=== PATIENT | male | born 1980 | race Caucasian/White ===

== ENCOUNTER 2024-01-09 09:36 | Inpatient (IN) | payer BC, MEDICAID ==
[~2024-01-09] VITALS: Ht 175.3 cm; Wt 81.0 kg
[2024-01-09] MEDS: ONDANSETRON HCL 4 MG/2 ML VIAL IV ONE (10:28)
[2024-01-09] MEDS: KETOROLAC TROMETH 30 MG/ML 1ML VIAL IV ONE (10:29)
[2024-01-09] MEDS: MORPHINE SULFATE 4 MG/ML SYR/VIAL IV ONE (10:29)
[2024-01-09] MEDS: SODIUM CHLORIDE 0.9% 1,000 ML IVB ONE (10:33)
[2024-01-09 10:38] LABS: Urine Bacteria MANY /hpf (None Seen); Urine Blood 2+ /uL (Negative); Urine Clarity Clear (Clear); Urine Color Light-Yellow (Yellow); Urine Hyaline Cast FEW /lpf (0 - 2); Urine Mucus FEW (None Seen); Urine Protein, UAD 1+ (Negative); Urine Specific Gravity 1.021 (1.001-1.035); Urine Sperm PRESENT /hpf (None Seen); Urine Urobilinogen Normal (Negative); Urine WBC 12 /hpf (0 - 3); Urine pH 5.5 (5.0-9.0)
[2024-01-09] MEDS: cefTRIAXone 1GM/50ML D5W 50 ML IV ONE (11:09)
[2024-01-09 11:19] LABS: Chloride 110 mmol/L (98-107); Sodium 141 mmol/L (136-145)
[2024-01-09 11:20] LABS: Anion Gap 7 (5-15); Basophils # (auto) 0 10 ^3/uL (0-0.2); Basophils % (auto) 0.1 % (0.0-2.0); Calcium 9.8 mg/dL (8.5-10.1); Carbon Dioxide 24 mmol/L (20-30); Eosinophils # (auto) 0.1 10 ^3/uL (0-0.8); Eosinophils % (auto) 0.6 % (0.0-7.0); Hematocrit 44.7 % (41.0-53.0); Hemoglobin 15.1 g/dL (13.5-17.5); Lymphocytes # (auto) 1.4 10 ^3/uL (0.4-5.4); Lymphocytes % (auto) 9.5 % (10.0-50.0); Mean Corpuscular Hemoglobin 29.3 pg (28.0-32.0); Mean Corpuscular Hgb Conc. 33.8 g/dL (32.0-36.0); Mean Corpuscular Volume 86.8 fL (80.0-100.0); Monocytes % (auto) 6.4 % (0.0-12.0); Neutrophils # (auto) 12.7 10 ^3/uL (1.6-8.6); Neutrophils % (auto) 83.4 % (37.0-80.0); Red Blood Cells 5.15 10^6/uL (4.5-5.90); Red Cell Distribution Width 13.8 % (11.8-14.3); White Blood Cell 15.3 10^3/uL (4.4-10.8)
[2024-01-09 11:25] LABS: BUN/Creatinine Ratio 11.3 (10.0-20.0); Blood Urea Nitrogen 12 mg/dL (9-23); Glucose 169 mg/dL (74-106)
[2024-01-09] MEDS: HYDROmorphone HCL 2 MG/ML VL/or syr IV ONE (11:56)
[2024-01-09] MEDS ORDERED: ACETAMINOPHEN 325 MG TAB PO PRN (13:30)
[2024-01-09] MEDS ORDERED: ONDANSETRON HCL 4 MG/2 ML VIAL IV PRN (13:30)
[2024-01-09] MEDS ORDERED: DOCUSATE SOD 100 MG CAP PO PRN (13:30)
[2024-01-09] MEDS: TAMSULOSIN HYDROCHLORIDE 0.4 MG CAP PO SCH (13:54)
[2024-01-09] MEDS: LACTATED RINGER'S 1,000 ML IV ONE (13:54)
[2024-01-09 13:55] VITALS: PULSE 42; RESP 16; O2SAT 95
[2024-01-09] MEDS: SODIUM CHLOR 0.9% PF (SALINE LOCK) 10ML VIAL/SYR IV SCH (13:55)
[2024-01-09 14:24] VITALS: O2SAT 98
[2024-01-09 14:30] VITALS: BP 148/91; PULSE 59; RESP 16; TEMP 98.7; O2SAT 98
[2024-01-09] MEDS: HYDROcodone-ACET 5/325MG TAB PO PRN (15:07)
[2024-01-09 16:35] VITALS: BP 139/91; PULSE 16; RESP 16; TEMP 98.5; O2SAT 98
[2024-01-09 20:00] VITALS: RESP 16
[2024-01-09 21:00] VITALS: BP 135/97; PULSE 69; RESP 18; TEMP 97.6; O2SAT 100
[2024-01-09] MEDS: HYDROmorphone HCL 2 MG/ML VL/or syr IV PRN (23:28)
[2024-01-10 01:00] VITALS: BP 139/82; PULSE 66; RESP 18; TEMP 97.8; O2SAT 100
[2024-01-10 05:00] VITALS: BP 121/53; PULSE 82; RESP 18; TEMP 97.7; O2SAT 98
[2024-01-10 08:01] VITALS: RESP 16
[2024-01-10 08:49] VITALS: BP 125/76; PULSE 96; RESP 16; TEMP 97.8; O2SAT 97
[2024-01-10] MEDS: ENOXAPARIN SOD 40 MG/0.4 ML SYRINGE SC SCH (09:52)
[2024-01-10 12:34] VITALS: BP 142/78; PULSE 81; RESP 16; TEMP 98; O2SAT 98
[2024-01-10] MEDS ORDERED: TAMS-35 PO (12:48)
[2024-01-10 12:52] VITALS: TEMP 36.7
== END 2024-01-10 13:30 | disposition home or self-care (01) | DRG 694 ==
LOC: ER 09:36 → OVERFLOW 13:23 → WEST WING 14:27
PROVIDERS: ADMIT Internal Medicine; ATTEND Internal Medicine
DX: N13.2 Hydronephrosis with renal and ureteral calculous obstruction (principal); K40.90 Unilateral inguinal hernia, without obstruction or gangrene, not specified as recurrent; K52.9 Noninfective gastroenteritis and colitis, unspecified; F17.290 Nicotine dependence, other tobacco product, uncomplicated; Z79.899 Other long term (current) drug therapy
CPT/HCPCS: 36415; 74176; 80048; 81001; 85025; G0378; J1885; J2405